=== PATIENT | female | born 1950 | race Caucasian/White ===

== ENCOUNTER 2021-05-28 20:12 | Emergency (ER) | payer MEDICARE ==
[~2021-05-28] VITALS: Ht 162.6 cm; Wt 80.7 kg
[2021-05-28 20:46] LABS: Source, Urine Clean Catch
[2021-05-28 20:48] LABS: Bilirubin, Urine Neg (Neg); Blood, Urine 5+ (Neg); Glucose Qualitative, Urine Neg (Neg); Ketones, Urine Neg (Neg); Leukocyte Esterase, Urine 3+ (Neg); Nitrite, Urine Neg (Neg); Protein, Urine 2+ (Neg); Specific Gravity, Urine 1.005 (1.003-1.022); Urobilinogen, Urine NORM (Normal)
[2021-05-28 21:13] LABS: Appearance, Urine Hazy (Clear); Color, Urine Pale Yellow (P-Yellow)
[2021-05-28 21:14] LABS: Amorphous Light (0-Heavy); Bacteria Few /hpf; Red Blood Cells, Urine 0-2 /hpf (0-2); Squamous Epithelial Cells Rare /hpf (Few); White Blood Cells, Urine TNTC /hpf (0-5)
[2021-05-28] MEDS ORDERED: CEPHALEXIN500 M1 PO (21:22)
[2021-05-28] MEDS ORDERED: Pyridium200 MG PO (21:22)
== END 2021-05-28 21:29 | disposition home or self-care (01) ==
LOC: ER 20:12
PROVIDERS: Physician Assistant
DX: N39.0 Urinary tract infection, site not specified (principal)
CPT/HCPCS: 81001; 87077; 87086; 87186; 99283; A9270